=== PATIENT | female | born 1990 | race Caucasian/White ===

== ENCOUNTER 2019-02-13 20:36 | Emergency (ER) | payer SELFPAY ==
[~2019-02-13] VITALS: Ht 175.3 cm; Wt 95.5 kg
[2019-02-13 20:45] VITALS: TEMP 98.7
[2019-02-13 22:39] LABS: BASO # 0.1 (0.0-0.2); BASO % 0.5 % (0.0-2.0); EOS # 0.3 (0.0-0.7); EOS % 2.6 % (0-4.0); GRAN # 6.1 (1.4-6.5); GRAN % 59.6 % (42.2-75.2); HEMATOCRIT 39.8 % (37.0-47.0); HEMOGLOBIN 13.8 g/dl (12.5-16.0); LYMPH # 2.8 (1.2-3.4); LYMPH % 26.9 % (20.0-51.0); MEAN CELL VOLUME 89 fl (80.0-100.0); MEAN CORPUSCULAR HEMOGLOBIN 31 pg (27.0-31.0); MEAN CORPUSCULAR HGB CONC 35 g/dl (33.0-37.0); MONO % 10.1 % (1.7-9.3); PLATELET COUNT 170 K/mm3 (130-400); RED BLOOD COUNT 4.49 M/mm3 (4.10-5.30); REDCELL DISTRIBUTION WIDTH-CV 13.1 % (11.5-14.5)
[2019-02-13 22:48] LABS: INR 0.9 (0.8-3.0)
[2019-02-13 22:50] LABS: PARTIAL THROMBOPLASTIN TIME 24.6 SECONDS (26.0-37.0)
[2019-02-13 22:51] LABS: D-DIMER < 200.00 ng/mLDDu (200-230)
[2019-02-13 23:27] VITALS: BP 128/84; PULSE 88
== END 2019-02-13 23:27 | disposition home or self-care (01) ==
LOC: COL.ER 20:36
PROVIDERS: Physician Assistant
DX: M79.604 Pain in right leg (principal); D68.59 Other primary thrombophilia; M79.89 Other specified soft tissue disorders; F17.210 Nicotine dependence, cigarettes, uncomplicated
CPT/HCPCS: J7030

== ENCOUNTER 2021-01-01 13:18 | Emergency (ER) | payer OTHER ==
[~2021-01-01] VITALS: Ht 175.3 cm; Wt 92.3 kg
[2021-01-01 13:26] VITALS: TEMP 98.8
[2021-01-01 15:17] LABS: COLLECTION METHOD CLEAN CATCH
[2021-01-01 15:24] LABS: MUCOUS Present /lpf; PH 5 (5-8); SQUAMOUS EPITHELIAL 0-2 /hpf; URINE APPEARANCE Clear; URINE BACTERIA Rare /hpf; URINE BILIRUBIN Negative (NEGATIVE); URINE BLOOD 2+ (NEGATIVE); URINE COLOR Yellow; URINE GLUCOSE Negative (NEGATIVE); URINE KETONE Negative (NEGATIVE); URINE LEUKOCYTE ESTERASE Negative (NEGATIVE); URINE NITRATE Negative (NEGATIVE); URINE PROTEIN(semi-quant) Negative (NEGATIVE); URINE UROBILINOGEN Negative (NEGATIVE)
[2021-01-01 16:10] VITALS: BP 135/81; PULSE 83
== END 2021-01-01 16:10 | disposition home or self-care (01) ==
LOC: COL.ER 13:18
PROVIDERS: Family Medicine
DX: R07.89 Other chest pain (principal); D68.59 Other primary thrombophilia
CPT/HCPCS: Q9967